=== PATIENT | male | born 1985 | race Caucasian/White ===

== ENCOUNTER 2017-12-10 13:20 | Emergency (ER) | payer BC, OTHER ==
[~2017-12-10] VITALS: Ht 189.2 cm; Wt 150.3 kg
[~2017-12-10 13:20] MED LIST: LRT5 PO
[2017-12-10 13:33] VITALS: Ht 189.2 cm; Wt 150.3 kg
[2017-12-10] MEDS ORDERED: MoRPHine SULFATE 10 MG/ML CARP/VIAL IV STA (13:46)
--- NOTE | 2017-12-10 13:55 | EMERGENCY ROOM VISIT NOTE ---
History First contact with patient: 13:37 Chief Complaint: VOMITING Stated Complaint: VOMITNG BLOOD,DIARRHEA History of Present Illness The patient is a 32 year old male who presents to the Emergency Room with complaints of vomiting and diarrhea that started last night. The patient has had many episodes of diarrhea. He has had 2 episodes of vomiting. He became concerned, because a second episode of emesis had some bright red blood. He has a history of gastritis. He does have some abdominal pain radiating to his back, which is similar to when he had his bout of gastritis last year. He denies any fever or chills. No sick contacts. Review of Systems 10 system review performed and negative unless noted in HPI or below Past Medical/Surgical History Otherwise healthy Social History Smoking Status: Current Some Day Smoker Alcohol Use: occasionally Current/Historical Medications Scheduled Ondasetron Odt (Zofran Odt), 4 MG SL Q6H Physical Exam Vital Signs Date Time Temp Pulse Resp B/P (MAP) Pulse Ox O2 Delivery O2 Flow Rate FiO2 12/10/17 18:04 98 18 134/74 98 Room Air 12/10/17 17:05 37.3 103 18 124/81 97 Room Air 12/10/17 15:43 37.0 96 18 103/69 95 Room Air 12/10/17 13:33 37.7 106 20 140/83 98 Room Air Physical Exam VITALS: Vitals are noted on the nurse's note and reviewed by myself. Vital signs stable. GENERAL: 32-year-old male, in no acute distress, nondiaphoretic, well-developed well-nourished. SKIN: The skin was without rashes, erythema, edema, or bruising. HEAD: Normocephalic atraumatic. MOUTH: Mucous membranes dry NECK: Supple without nuchal rigidity. No lymphadenopathy. Cervical spine is nontender. No JVD. HEART: Tachycardic, regular rhythm without murmurs gallops or rubs. LUNGS: Clear to auscultation bilaterally without wheezes, rales or rhonchi. No accessory muscle use. ABDOMEN: Bowel sounds present, but hypoactive. Soft, nontender, without organomegaly. No guarding or rebound tenderness. MUSCULOSKELETAL: No muscle atrophy, erythema, or edema noted. Strength 5/5 throughout. NEURO: Patient was alert and oriented to person place and time. Normal sensation to touch. No focal neurological deficits. Medical Decision & Procedures Laboratory Results 12/10/17 13:54 Red Blood Count 5.33, Mean Corpuscular Volume 90.6, Mean Corpuscular Hemoglobin 32.5, Mean Corpuscular Hemoglobin Concent 35.8, Mean Platelet Volume 9.2, Neutrophils (%) (Auto) 89.3, Lymphocytes (%) (Auto) 2.0, Monocytes (%) (Auto) 7.2, Eosinophils (%) (Auto) 1.1, Basophils (%) (Auto) 0.1, Neutrophils # (Auto) 10.72, Lymphocytes # (Auto) 0.24, Monocytes # (Auto) 0.86, Eosinophils # (Auto) 0.13, Basophils # (Auto) 0.01 12/10/17 13:54 Test 12/10/17 13:54 White Blood Count 11.99 K/uL (4.8-10.8) Red Blood Count 5.33 M/uL (4.7-6.1) Hemoglobin 17.3 g/dL (14.0-18.0) Hematocrit 48.3 % (42-52) Mean Corpuscular Volume 90.6 fL (80-100) Mean Corpuscular Hemoglobin 32.5 pg (25-34) Mean Corpuscular Hemoglobin Concent 35.8 g/dl (32-36) Platelet Count 230 K/uL (130-400) Mean Platelet Volume 9.2 fL (7.4-10.4) Neutrophils (%) (Auto) 89.3 % Lymphocytes (%) (Auto) 2.0 % Monocytes (%) (Auto) 7.2 % Eosinophils (%) (Auto) 1.1 % Basophils (%) (Auto) 0.1 % Neutrophils # (Auto) 10.72 K/uL (1.4-6.5) Lymphocytes # (Auto) 0.24 K/uL (1.2-3.4) Monocytes # (Auto) 0.86 K/uL (0.11-0.59) Eosinophils # (Auto) 0.13 K/uL (0-0.5) Basophils # (Auto) 0.01 K/uL (0-0.2) RDW Standard Deviation 39.6 fL (36.4-46.3) RDW Coefficient of Variation 11.9 % (11.5-14.5) Immature Granulocyte % (Auto) 0.3 % Immature Granulocyte # (Auto) 0.03 K/uL (0.00-0.02) Anion Gap 7.0 mmol/L (3-11) Est Creatinine Clear Calc Drug Dose 146.3 ml/min Estimated GFR () 98.4 Estimated GFR (Non- 84.9 BUN/Creatinine Ratio 16.2 (10-20) Calcium Level 9.2 mg/dl (8.5-10.1) Magnesium Level 1.9 mg/dl (1.8-2.4) Total Bilirubin 0.8 mg/dl (0.2-1) Aspartate Amino Transf (AST/SGOT) 16 U/L (15-37) Alanine Aminotransferase (ALT/SGPT) 50 U/L (12-78) Alkaline Phosphatase 89 U/L (45-117) Total Protein 8.6 gm/dl (6.4-8.2) Albumin 4.3 gm/dl (3.4-5.0) Globulin 4.3 gm/dl (2.5-4.0) Albumin/Globulin Ratio 1.0 (0.9-2) Lipase 82 U/L (73-393) Date/Time Source Procedure Growth Status 12/10/17 16:40 Stool C.difficile Toxin B Gene (PCR) - Final No C. difficile toxin B gene detected Complete Medications Administered Medications (Trade) Dose Ordered Sig/Anamaria Route Start Time Stop Time Status Last Admin Dose Admin Ondansetron HCl (Zofran Inj) 4 mg Q2H PRN IV 12/10/17 14:00 12/10/17 18:31 DC 12/10/17 16:36 4 MG Morphine Sulfate (MoRPHine SULFATE INJ) 6 mg NOW STAT IV 12/10/17 13:46 12/10/17 13:49 DC 12/10/17 14:09 6 MG Sodium Chloride 1,000 ml @ 999 mls/hr Q1H1M ONCE IV 12/10/17 14:00 12/10/17 15:00 DC 12/10/17 14:09 999 MLS/HR Sodium Chloride 500 ml @ 999 mls/hr Q31M STAT IV 12/10/17 15:16 12/10/17 15:46 DC 12/10/17 15:43 999 MLS/HR Ondansetron HCl (ZOFRAN ODT 4MG Home Pack) 1 [facility] UD ONCE PO 12/10/17 18:00 12/10/17 18:01 DC 12/10/17 18:06 1 [facility] ED Course Patient was seen and examined Vital signs including blood pressure were reviewed medications list was verified with patient Labs were obtained, and a saline lock was established The patient was medicated with morphine 6 mg IV and Zofran 4 mg IV. He was hydrated with 1 L of normal saline. Upon reevaluation, the patient was feeling much better. We discussed his workup. He voiced understanding. He was given an additional bolus of 500 mL normal saline. The patient was able to provide a bowel movement. He was provided with a home pack of Zofran. I reviewed discharge instructions the patient. They voiced understanding and had no further questions. Medical Decision Differential diagnosis: Viral versus bacterial gastroenteritis, inflammatory bowel disease, pancreatitis, gastric ulcer, GI bleed This patient is a 32-year-old male that presents to the emergency department with vomiting, diarrhea and vomiting blood that occurred prior to arrival. On exam, he was mildly acutely ill. His abdomen was benign. His vital signs are stable. Labs reveal slight dehydration. He also has mild leukocytosis. His H& H is stable. I believe he likely has a limited Darby-Green tear. I do not suspect a significant GI bleed or gastric ulcer. I believe he likely has a viral GI illness. The patient had good symptomatic relief in the emergency department with fluids and Zofran. I believe he is stable to be discharged home. He will follow up closely with his primary care physician. He will stick to clear liquids tonight. He was provided with Zofran for nausea. He agrees to return to the emergency department with any new or worsening symptoms. This chart was completed in part utilizing [employer] Speech Voice Recognition software. Attempts were made to minimize the grammatical errors, random word insertions, pronoun errors and incomplete sentences. Any formal questions or concerns about the content, text or information contained within the body of this dictation should be directly addressed to the provider for clarification. Medication Reconcilliation Current Medication List: was personally reviewed by me Blood Pressure Screening Patient's blood pressure: Normal blood pressure Impression Primary Impression: Nausea, vomiting, and diarrhea Additional Impression: Darby-Green tear Departure Information Dispostion Home / Self-Care Condition GOOD Prescriptions Ondasetron Odt (ZOFRAN ODT) 4 Mg Tab 4 MG SL Q6H for Nausea, #20 TAB Prov: Stephania Rowell PA-C 12/10/17 Referrals No Doctor, Assigned (PCP) Patient Instructions ED Diet Vomiting Diarrhea, Darby Green Tear, My [facility] Additional Instructions You have been evaluated in the emergency department for vomiting, diarrhea and vomiting blood. This is likely due to a viral GI illness. Vomiting blood count be consistent with a Darby-Green tear, which is a self-limited bleeding of the esophagus. I would stick to a clear liquid diet tonight-broth, water, Gatorade, etc. if you are feeling better tomorrow, please advance to a bland diet. Please increase your fluid intake over the next 48 hours Please take Zofran 1 tab under the tongue every 6 hours as needed for nausea Please follow-up with her primary care physician within the next 2-3 days for recheck Do not hesitate to return to the emergency department with any new, worsening or concerning symptoms; especially, further bleeding, vomiting coffee ground appearing liquid, abdominal pain or uncontrolled fever Work Instructions Return To Work: 1 day Problem Qualifiers
[2017-12-10] MEDS ORDERED: SODIUM CHLORIDE 0.9% 1000ML 1,000 ML IV ONE (14:00)
[2017-12-10 14:08] LABS: BASO % 0.1 %; BASO ABS # 0.01 K/uL (0-0.2); EOS % 1.1 %; EOS ABS # 0.13 K/uL (0-0.5); HEMATOCRIT 48.3 % (42-52); HEMOGLOBIN 17.3 g/dL (14.0-18.0); IG# 0.03 K/uL (0.00-0.02); LYMPH ABS # 0.24 K/uL (1.2-3.4); MEAN CELL VOLUME 90.6 fL (80-100); MEAN CORPUSCULAR HEMOGLOBIN 32.5 pg (25-34); MEAN CORPUSCULAR HGB CONC 35.8 g/dl (32-36); MEAN PLATELET VOLUME 9.2 fL (7.4-10.4); MONO % 7.2 %; MONO ABS # 0.86 K/uL (0.11-0.59); NEUT % 89.3 %; NEUT ABS # 10.72 K/uL (1.4-6.5); PLATELET COUNT 230 K/uL (130-400); RED CELL DISTRIBUTION WIDTH CV 11.9 % (11.5-14.5); RED CELL DISTRIBUTION WIDTH SD 39.6 fL (36.4-46.3); WHITE BLOOD COUNT 11.99 K/uL (4.8-10.8)
[2017-12-10] MEDS: ONDANSETRON INJ 2 MG/ML 2 ML VIAL IV PRN ×2 (14:09→16:36)
[2017-12-10 14:21] LABS: ALBUMIN 4.3 gm/dl (3.4-5.0); CALCIUM 9.2 mg/dl (8.5-10.1); CREATININE 1.15 mg/dl (0.60-1.40); POTASSIUM 4.3 mmol/L (3.5-5.1)
[2017-12-10 14:24] LABS: TOTAL PROTEIN 8.6 gm/dl (6.4-8.2)
[2017-12-10] MEDS ORDERED: SODIUM CHLORIDE 0.9% 500ML 500 ML IV STA (15:16)
[2017-12-10 17:05] VITALS: TEMP 37.3
[2017-12-10] MEDS ORDERED: ONDA4TAB10 SL (17:57)
[2017-12-10] MEDS ORDERED: ONDANSETRON HOME PACK 4MG OD TAB PO ONE (18:00)
[2017-12-10 18:04] VITALS: BP 134/74; PULSE 98; O2SAT 98
== END 2017-12-10 18:15 | disposition home or self-care (01) ==
LOC: C.EDB 13:23
DX: R11.2 Nausea with vomiting, unspecified (principal); R19.7 Diarrhea, unspecified; K22.6 Gastro-esophageal laceration-hemorrhage syndrome; F17.210 Nicotine dependence, cigarettes, uncomplicated